=== PATIENT | male | born 1975 | race Caucasian/White ===

== ENCOUNTER 2019-09-07 13:48 | Emergency (ER) | payer OTHER ==
[2019-09-07] MEDS ORDERED: LIDOCAINE 1% MPF 30 ML VIAL ONE (14:21)
[2019-09-07] MEDS ORDERED: CEFAZOLIN SODIUM 1 GM/VIAL ONE (14:21)
[2019-09-07] MEDS ORDERED: TETANUS & DIPHTHERIA TOX,ADULT 0.5 ML VIAL ONE (14:21)
[2019-09-07] MEDS ORDERED: WATER FOR INJ,STERILE 10 ML ONE (14:22)
--- NOTE | 2019-09-07 14:36 | RAD REPORT ---
EXAM DESCRIPTION: RAD - Hand Left 3 View - 09/07/2019 2:25 pm CLINICAL HISTORY: Laceration COMPARISON: <Comparisons> FINDINGS: Laceration is noted with small bony fragments or foreign bodies the level of the middle ph alanx of the second finger. Mild adjacent soft tissue swelling noted.
--- NOTE | 2019-09-07 16:28 | ER ---
Nurse's Notes [facility] Name: Ashok Morris Age: 44 yrs Sex: Male : 1975 Arrival Date: 09/07/2019 Time: 13:49 Bed 5 Private MD: Jim Wright Diagnosis: Laceration without foreign body of left index finger without damage to nail;Laceration without foreign body of left middle finger without damage to nail;Laceration of extensor muscle, fascia and tendon of left index finger at wrist and hand level-.;Avulsion fracture of middle phalanx left index Presentation: 13:54 Chief complaint: Patient states: "I cut my hand with a chain saw". Lacerations noted to aa5 left index and left middle finger, bleeding controlled. 13:54 Coronavirus screen: The patient has NOT traveled to [place] in the past 14 days. Ebola aa5 Screen: Patient negative for fever greater than or equal to 101.5 degrees Fahrenheit, and additional compatible Ebola Virus Disease symptoms. Initial Sepsis Screen: Does the patient meet any 2 criteria? No. Patient's initial sepsis screen is negative. Does the patient have a suspected source of infection? No. Patient's initial sepsis screen is negative. Risk Assessment: Do you want to hurt yourself or someone else? Patient reports no desire to harm self or others. 13:54 Acuity: DANIAL 3 aa5 13:54 Method Of Arrival: Ambulatory aa5 13:54 Onset of symptoms was September 07, 2019. aa5 Historical: - Allergies: 14:12 cashews; aa5 14:12 seafood; aa5 14:12 HONEY; aa5 14:12 Fish Containing Products; aa5 - Home Meds: 14:13 lisinopril 10 mg oral tab once daily [Active]; vitamin D3 [Active]; Vitamin B12 aa5 [Active]; Probiotic oral oral [Active]; - PMHx: 14:12 Hypertension; aa5 - PSHx: 14:12 Hernia repair; aa5 - Immunization history:: Last tetanus immunization: unknown. - Social history:: Smoking status: Patient denies any tobacco usage or history of. Screenin:00 Abuse screen: Denies threats or abuse. Nutritional screening: No deficits noted. aa5 Tuberculosis screening: No symptoms or risk factors identified. Fall Risk None identified. Assessment: 14:00 General: Appears comfortable, Behavior is calm, cooperative. Pain: Complains of pain in aa5 dorsal aspect of proximal phalanx of left index finger and dorsal aspect of proximal phalanx of left middle finger Pain does not radiate. Pain currently is 4 out of 10 on a pain scale. Quality of pain is described as sharp, throbbing, Is continuous. Neuro: Level of Consciousness is awake, alert, obeys commands, Oriented to person, place, time, situation. Cardiovascular: Capillary refill < 3 seconds is brisk in bilateral fingers. Respiratory: Airway is patent Respiratory effort is even, unlabored, Respiratory pattern is regular, symmetrical. GI: No signs and/or symptoms were reported involving the gastrointestinal system. : No signs and/or symptoms were reported regarding the genitourinary system. EENT: No signs and/or symptoms were reported regarding the EENT system. Derm: Skin is pink, warm \\T\\ dry. Laceration noted to dorsal aspect of proximal phalanx of left index finger and left middle finger. No active bleeding noted. Musculoskeletal: Range of motion: intact in all extremities. 15:00 Reassessment: Soaked left hand in basin with saline and iodine per CALIBRATION LABORATORY TECHNICIAN VO. . aa5 15:00 Reassessment: Patient is alert, oriented x 3, equal unlabored respirations, skin aa5 warm/dry/pink. Pt sitting up in bed, family at bedside. . 15:30 Reassessment: Patient is alert, oriented x 3, equal unlabored respirations, skin aa5 warm/dry/pink. 17:25 Reassessment: Patient is alert, oriented x 3, equal unlabored respirations, skin aa5 warm/dry/pink. Vital Signs: 13:54 BP 110 / 76; Pulse 109; Resp 18 S; Temp 98.5(TE); Pulse Ox 95% on R/A; Pain 4/10; aa5 14:36 BP 100 / 65; Pulse 96; Resp 18 S; Pulse Ox 95% on R/A; aa5 15:30 BP 115 / 81; Pulse 91; Resp 18 S; Pulse Ox 98% on R/A; aa5 17:20 BP 123 / 85; Pulse 86; Resp 16 S; Pulse Ox 96% on R/A; aa5 ED Course: 13:49 Patient arrived in ED. am2 13:50 Jim Wright MD is Private Physician. am2 13:53 Arm band placed on Patient placed in an exam room, on a stretcher. aa5 13:53 Patient has correct armband on for positive identification. Bed in low position. Call aa5 light in reach. Side rails up X 1. Adult w/ patient. 13:58 Dano Loera NP is PHCP. pm1 13:58 Janes Sharp MD is Attending Physician. pm1 14:08 Gracy Zavala RN is Primary Nurse. aa5 14:11 Triage completed. aa5 14:25 Hand Left 3 View XRAY In Process Unspecified. EDMS 15:30 Assist provider with laceration repair on dorsal aspect of proximal phalanx of left aa5 middle finger and dorsal aspect of proximal phalanx of left index finger using sutures. Set up tray. Performed by Dano Loera CALIBRATION LABORATORY TECHNICIAN Patient tolerated well. 16:27 Vinicius Underwood MD is Referral Physician. pm1 17:25 Patient did not have IV access during this emergency room visit. aa5 Administered Medications: 14:28 Drug: Tetanus-Diphtheria Toxoid Adult 0.5 ml {Geophysical Prospecting Surveyor: [employer]. Exp: aa5 12/13/2020. Lot #: [id number]. } Route: IM; Site: right deltoid; 14:45 Follow up: Response: No adverse reaction aa5 14:29 Drug: Ancef 1 grams Route: IM; Site: right gluteus; aa5 14:45 Follow up: Response: No adverse reaction aa5 15:20 Drug: Lidocaine (1 %) 5 ml {Note: administered by CALIBRATION LABORATORY TECHNICIAN for laceration repair .} Volume: 5 aa5 ml; Route: Infiltration; 15:20 Drug: Bupivacaine (0.5 %) 10 ml {Note: administered by CALIBRATION LABORATORY TECHNICIAN for laceration repair. .} aa5 Volume: 10 ml; Route: Infiltration; Outcome: 16:27 Discharge ordered by . pm1 17:25 Discharged to home ambulatory, with family. aa5 17:25 Condition: good 17:25 Discharge instructions given to patient, Instructed on discharge instructions, follow up and referral plans. medication usage, Demonstrated understanding of instructions, follow-up care, medications, Prescriptions given X 2. 17:30 Patient left the ED. aa5 Signatures: Dispatcher [employer] EDMS Reese, Amparo, Gracy Enciso RN, RN RN aa5 Dano Loera, CALIBRATION LABORATORY TECHNICIAN CALIBRATION LABORATORY TECHNICIAN pm1 Lola Fisher am2 Corrections: (The following items were deleted from the chart) 14:09 13:49 Arm band placed on Patient placed in an exam room, on a stretcher, [email or web address] aa5 18:05 17:34 Patient left the ED. keyla aa5
--- NOTE | 2019-09-07 16:28 | EDPHYS ---
Physician Documentation [facility] Name: Ashok Morris Age: 44 yrs Sex: Male : 1975 Arrival Date: 09/07/2019 Time: 13:49 Bed 5 Private MD: Jim Wright ED Physician Janes Sharp HPI: 14:29 This 44 yrs old Male presents to ER via Ambulatory with complaints of Finger pm1 Injury, Laceration. 14:29 The patient or guardian reports a laceration, irregular. The complaints affect the PIP pm1 of left middle finger and PIP of left index finger. Context: The problem was sustained at home, resulted from chain saw. Onset: The symptoms/episode began/occurred just prior to arrival. Modifying factors: The symptoms are alleviated by pressure to area. Associated signs and symptoms: Pertinent negatives: cyanosis distally, decreased sensation distally, numbness distally, tingling distally. The patient has not experienced similar symptoms in the past. Patient was using a chain saw cutting some tree limbs and then the chain saw bounced and cut his left 2nd and 3rd finger. Historical: - Allergies: 14:12 cashews; aa5 14:12 seafood; aa5 14:12 HONEY; aa5 14:12 Fish Containing Products; aa5 - Home Meds: 14:13 lisinopril 10 mg oral tab once daily [Active]; vitamin D3 [Active]; Vitamin B12 aa5 [Active]; Probiotic oral oral [Active]; - PMHx: 14:12 Hypertension; aa5 - PSHx: 14:12 Hernia repair; aa5 - Immunization history:: Last tetanus immunization: unknown. - Social history:: Smoking status: Patient denies any tobacco usage or history of. ROS: 14:29 Constitutional: Negative for fever, chills, and weight loss, Cardiovascular: Negative pm1 for chest pain, palpitations, and edema, Respiratory: Negative for shortness of breath, cough, wheezing, and pleuritic chest pain, Abdomen/GI: Negative for abdominal pain, nausea, vomiting, diarrhea, and constipation. 14:29 Neuro: Negative for headache, weakness, numbness, tingling, and seizure. 14:29 MS/extremity: Positive for laceration, of the PIP of left index finger and PIP of left middle finger, Negative for decreased range of motion, deformity, paresthesias. 14:29 Skin: Positive for laceration(s), of the PIP of left index finger and PIP of left middle finger. 14:29 All other systems are negative. Exam: 16:25 Constitutional: This is a well developed, well nourished patient who is awake, alert, pm1 and in no acute distress. Head/Face: Normocephalic, atraumatic. Chest/axilla: Normal chest wall appearance and motion. Nontender with no deformity. No lesions are appreciated. Cardiovascular: Regular rate and rhythm with a normal S1 and S2. No gallops, murmurs, or rubs. Normal PMI, no JVD. No pulse deficits. Respiratory: Lungs have equal breath sounds bilaterally, clear to auscultation and percussion. No rales, rhonchi or wheezes noted. No increased work of breathing, no retractions or nasal flaring. Back: No spinal tenderness. No costovertebral tenderness. Full range of motion. 16:25 Skin: Appearance: normal except for affected area, injury, laceration(s), that can be described as clean, no foreign body, linear to third left finger and irregular to second left finger. 16:25 Neuro: Orientation: is normal, Motor: is normal, moves all fours, Sensation: is normal, no obvious gross deficits. Vital Signs: 13:54 BP 110 / 76; Pulse 109; Resp 18 S; Temp 98.5(TE); Pulse Ox 95% on R/A; Pain 4/10; aa5 14:36 BP 100 / 65; Pulse 96; Resp 18 S; Pulse Ox 95% on R/A; aa5 15:30 BP 115 / 81; Pulse 91; Resp 18 S; Pulse Ox 98% on R/A; aa5 17:20 BP 123 / 85; Pulse 86; Resp 16 S; Pulse Ox 96% on R/A; aa5 Laceration: 17:37 Wound Repair of 7cm ( 2.8in ) subcutaneous laceration to dorsal aspect of proximal pm1 phalanx of left middle finger and dorsal aspect of proximal phalanx of left index finger. Irregularly shaped.. Distal neuro/vascular/tendon intact. Anesthesia: Digital block administered with 5 mls of Lido/Marcaine. Wound prep: Extensive cleansing with betadine by billing and quality technician by , Wound irrigation with saline by billing and quality technician by me, Wound explored extensively, Copious irrigation, two flat 3 mm x 1 mm x 2 mm avulsed bones removed from laceration to 2nd left finger at proximal aspect of middle phalanx. Skin closed with 17 4-0 Prolene using simple sutures and sterile technique. Dressed with Neosporin, Kerlix, non-adherent dressing, finger splint applied to 2nd left finger. Patient tolerated well. MDM: 13:58 Patient medically screened. pm1 16:25 Data reviewed: vital signs. Data interpreted: Pulse oximetry: on room air is 95 %. pm1 Interpretation: normal. Counseling: I had a detailed discussion with the patient and/or guardian regarding: the historical points, exam findings, and any diagnostic results supporting the discharge/admit diagnosis, radiology results, the need for outpatient follow up, for definitive care, a hand specialist, to return to the emergency department if symptoms worsen or persist or if there are any questions or concerns that arise at home. 14:06 Order name: Hand Left 3 View XRAY; Complete Time: 15:04 pm1 14:06 Order name: Prolene, Sutures; Complete Time: 14:32 pm1 14:06 Order name: Dressing - Wound; Complete Time: 16:56 pm1 14:06 Order name: Gloves, Sterile; Complete Time: 14:32 pm1 14:06 Order name: Setup Suture Tray; Complete Time: 14:32 pm1 16:39 Order name: Finger Splint: Splint left 2nd and 3rd fingers; Complete Time: 16:56 pm1 Administered Medications: 14:28 Drug: Tetanus-Diphtheria Toxoid Adult 0.5 ml {Detective Captain: [email or web address]. Exp: aa5 12/13/2020. Lot #: [id number]. } Route: IM; Site: right deltoid; 14:45 Follow up: Response: No adverse reaction aa5 14:29 Drug: Ancef 1 grams Route: IM; Site: right gluteus; aa5 14:45 Follow up: Response: No adverse reaction aa5 15:20 Drug: Lidocaine (1 %) 5 ml {Note: administered by GUEST SERVICES AMBASSADOR for laceration repair .} Volume: 5 aa5 ml; Route: Infiltration; 15:20 Drug: Bupivacaine (0.5 %) 10 ml {Note: administered by GUEST SERVICES AMBASSADOR for laceration repair. .} aa5 Volume: 10 ml; Route: Infiltration; Disposition: 09/07/19 16:27 Discharged to Home. Impression: Laceration without foreign body of left index finger without damage to nail, Laceration without foreign body of left middle finger without damage to nail, Laceration of extensor muscle, fascia and tendon of left index finger at wrist and hand level - ., Avulsion fracture of middle phalanx left index . - Condition is Stable. - Discharge Instructions: Laceration Care, Adult, [id number]. - Prescriptions for Keflex 500 mg Oral Capsule - take 1 capsule by ORAL route every 8 hours for 10 days; 30 capsule. Tylenol- Codeine #3 300-30 mg Oral Tablet - take 2 tablets by ORAL route every 6 hours As needed; 20 tablet. - Medication Reconciliation Form, Thank You Letter, Antibiotic Education, Prescription Opioid Use form. - Follow up: Emergency Department; When: As needed; Reason: Worsening of condition. Follow up: Vinicius Underwood MD; When: 2 - 3 days; Reason: Wound Recheck, Recheck today's complaints, Continuance of care, Re-evaluation by your physician. - Problem is new. - Symptoms have improved. - Notes: Deja Lind MD [place] Office: [address] [place] [address] [place] Office [address] [place] [id number] Addendum: 09/08/2019 18:03 Co-signature as Attending Physician, Janes Sharp MD I agree with the assessment and c rae plan of care. Signatures: Dispatcher [employer] Janes Haro MD MD cha Williams, Irene, RN RN iw Calderon, Audri, RN RN aa5 Dano Loera NP GUEST SERVICES AMBASSADOR pm1 Corrections: (The following items were deleted from the chart) 16:36 16:27 09/07/2019 16:27 Discharged to Home. Impression: Laceration without foreign body pm1 of left index finger without damage to nail; Laceration without foreign body of left middle finger without damage to nail; Laceration of extensor muscle, fascia and tendon of left index finger at wrist and hand level. Condition is Stable. Forms are Medication Reconciliation Form, Thank You Letter, Antibiotic Education, Prescription Opioid Use. Follow up: Emergency Department; When: As needed; Reason: Worsening of condition. Follow up: Vinicius Underwood; When: 2 - 3 days; Reason: Wound Recheck, Recheck today's complaints, Continuance of care, Re-evaluation by your physician. Problem is new. Symptoms have improved. pm1 16:38 16:36 09/07/2019 16:27 Discharged to Home. Impression: Laceration without foreign body pm1 of left index finger without damage to nail; Laceration without foreign body of left middle finger without damage to nail; Laceration of extensor muscle, fascia and tendon of left index finger at wrist and hand level; Avulsion fracture of middle phalanx left index . Condition is Stable. Discharge Instructions: Laceration Care, Adult, [id number]. Prescriptions for Keflex 500 mg Oral Capsule - take 1 capsule by ORAL route every 8 hours for 10 days; 30 capsule, Tylenol-Codeine #3 300-30 mg Oral Tablet - take 2 tablets by ORAL route every 6 hours As needed; 20 tablet. and Forms are Medication Reconciliation Form, Thank You Letter, Antibiotic Education, Prescription Opioid Use. Follow up: Emergency Department; When: As needed; Reason: Worsening of condition. Follow up: Vinicius Underwood; When: 2 - 3 days; Reason: Wound Recheck, Recheck today's complaints, Continuance of care, Re-evaluation by your physician. Problem is new. Symptoms have improved. pm1 17:34 16:38 09/07/2019 16:27 Discharged to Home. Impression: Laceration without foreign body iw of left index finger without damage to nail; Laceration without foreign body of left middle finger without damage to nail; Laceration of extensor muscle, fascia and tendon of left index finger at wrist and hand level - .; Avulsion fracture of middle phalanx left index . Condition is Stable. Discharge Instructions: Laceration Care, Adult, [id number]. Prescriptions for Keflex 500 mg Oral Capsule - take 1 capsule by ORAL route every 8 hours for 10 days; 30 capsule, Tylenol-Codeine #3 300-30 mg Oral Tablet - take 2 tablets by ORAL route every 6 hours As needed; 20 tablet. and Forms are Medication Reconciliation Form, Thank You Letter, Antibiotic Education, Prescription Opioid Use. Follow up: Emergency Department; When: As needed; Reason: Worsening of condition. Follow up: Vinicius Underwood; When: 2 - 3 days; Reason: Wound Recheck, Recheck today's complaints, Continuance of care, Re-evaluation by your physician. Problem is new. Symptoms have improved. pm1
[2019-09-07 17:40] VITALS: TEMP 98.5; O2SAT 95
[2019-09-07 17:42] VITALS: BP 100/65
== END 2019-09-07 17:34 | disposition home or self-care (01) ==
LOC: ER 13:48
PROC: 0JQK0ZZ Repair Left Hand Subcutaneous Tissue and Fascia, Open Approach (ICD-10-PCS; principal; 2019-09-07)
DX: S61.211A Laceration without foreign body of left index finger without damage to nail, initial encounter (principal); S61.213A Laceration without foreign body of left middle finger without damage to nail, initial encounter; W31.2XXA Contact with powered woodworking and forming machines, initial encounter; Y93.9 Activity, unspecified; Y92.017 Garden or yard in single-family (private) house as the place of occurrence of the external cause; Z23 Encounter for immunization; Z91.013 Allergy to seafood; Z91.010 Allergy to peanuts; Z91.018 Allergy to other foods; I10 Essential (primary) hypertension
CPT/HCPCS: 73130; 90471; 90714; 96372; 99284; 12002; J0690